=== PATIENT | female | born 1995 ===

== ENCOUNTER 2016-11-18 00:11 | Emergency (ER) | payer MEDICAID ==
[2016-11-18 00:42] VITALS: BMI 23.1
[2016-11-18 01:19] LABS: RBC URINE 4 /hpf (0-3); URINE BACTERIA RARE (<OCC); URINE BILIRUBIN NEGATIVE (NEGATIVE); URINE BLOOD NEGATIVE (NEGATIVE); URINE CALCIUM OXALATE CRYSTALS MOD /hpf (<OCC); URINE COLOR YELLOW (YELLOW); URINE GLUCOSE (UA) NEG (Normal); URINE KETONE TRACE mg/dL (NEGATIVE); URINE LEUKOCYTE ESTERASE NEG Leu/uL (Negative); URINE PROTEIN 30 mg/dL (NEGATIVE); WBC URINE 8 /hpf (0-5)
--- NOTE | 2016-11-18 05:06 | OBDCSUM ---
Datetime: 11/18/2016 01:30 Discharged to, Provider: Home Follow up at, Provider: Primary OB provider Disch Instr Activity: Normal activity Disch Instr Diet: Regular Discharge Time: 11/18/2016 01:30 Follow up in weeks, Provider: clinic appointment for November 20 Disch Referrals: None Discharge Diagnosis Prov Other: abdominal pain
--- NOTE | 2016-11-18 05:07 | OBHP ---
Datetime: 11/18/2016 02:01 IP Chief Complaint Other: abdominal pain and pressure IP Admit Plan: Observation/Evaluation; Discharge home Admit Comment, IP Provider: Patient is a @ 23.1 wks with abdominal pain and pressure since 8pm. Patient denies vaginal bleeding, leaking, +FM. No dysuria, no other signs/symptoms. No other complic ations in the , no medical/surgical problems. [id number] and otherwise no contractions. UA phil wed squamous sample so not a clean catch. Patient otherwise did not appear in labor or to have eviden ce of chorio, no fever or abdominal pain on exam. Patient dishcarged, labor precautions, office appt 12/20 Pelvic Type - PN: Adequate Extremities - PN: Normal Abdomen - PN: Normal Back - PN: Normal Breast - PN: Normal Lungs - PN: Normal Heart - PN: Normal Thyroid - PN: Normal Neurologic - PN: Normal HEENT - PN: Normal General - PN: Normal FHR - Baseline A Provider: 150 Contraction Comments Provider: none Vital Signs Provider: Reviewed; Within Normal Limits Genitourinary Exam: Normal DTRs - PN: Normal
[2016-11-18 05:50] VITALS: BP 121/80; PULSE 95; TEMP 98.4; O2SAT 100
== END 2016-11-18 01:30 | disposition home or self-care (01) ==
LOC: H.EROB2 00:11
DX: O47.02 False labor before 37 completed weeks of gestation, second trimester (principal); Z3A.24 24 weeks gestation of pregnancy

== ENCOUNTER 2017-01-09 11:31 | Emergency (ER) | payer MEDICAID, OTHER ==
--- NOTE | 2017-01-09 13:59 | OBHP ---
Datetime: 01/09/2017 12:39 IP Adm Impression: , intrauterine IP Admit Plan: Discharge home Admit Comment, IP Provider: 21 yo at 30.5 wk gestational age, confirmed by u/s presented to OB ED due to perceived decreased movement since 2 days ago. Denies vaginal bleeding, contractions, or loss of fluid. Last sexual activity more than 1 week ago. Denies being aware of any problems with this . Past OBhx: none, denies Records indicate LSIL on last PAP and +HPV. Med hx: asthma, last inhaler use last month Denies past surgical hx. Denies tobacco, alcohol, drug use Meds: vitamins Allergies: NKDA care: [place] Next visit: SatJan 18. ROS: denies chest pain, sob, nausea, vomiting, burning with urination, headache, and dizziness PE: BP: 120/78 FHR: 150 Gen: AAOx3 CV: S1,S2 present, RRR Resp: clear to auscultation bilaterally, normal resp effort Abd: +BS, gravid Extremities: no edema A: 21 yo at 30.5 weeks, with reassuring FHR. P: observe FHR on monitor, reassuring monitor strip. Pt felt good movement while in [facility]IK[facility]. Donna shaffer pt, strongly encouraged to not wait 3 days of having decreased movement if this were to occur again; advised to follow up at provider at scheduled appt on Jan 18. Discussed with attending Dr. Albert [email or web address] Patient was seen with the resident and I agree with the note Extremities - PN: Normal Abdomen - PN: Normal Back - PN: Normal Breast - PN: Not Done Lungs - PN: Normal Heart - PN: Normal Thyroid - PN: Not Done Neurologic - PN: Normal HEENT - PN: Normal General - PN: Normal FHR - Baseline A Provider: 150 Gestation - Est Wks by US: 30.5 EGA AdmitDate IP: 30.5 IP Chief Complaint: Decreased movement NICHD Variability Prov Fetus A: Moderate 6-25bpm NICHD Accel Fetus A IP Provider: 10X10 FHR Category Provider Fetus A: Category I Genitourinary Exam: Not Done DTRs - PN: Not Done
[2017-01-10 12:30] VITALS: BP 94/65; PULSE 85; O2SAT 100
== END 2017-01-09 13:03 | disposition home or self-care (01) ==
LOC: H.EROB2 11:31 → H.EROB 11:58 → H.EROB2 13:03
DX: O36.8130 Decreased fetal movements, third trimester, not applicable or unspecified (principal); Z3A.30 30 weeks gestation of pregnancy